=== PATIENT | female | born 1995 | race American Indian/Alaskan Native ===

== ENCOUNTER 2021-01-03 13:53 | Outpatient (CLI) | payer OTHER | END 2021-01-03 14:47 | disposition home or self-care (01) | LOC: NST 13:53 | PROVIDERS: ATTEND Obstetrics & Gynecology | DX: Z34.82 Encounter for supervision of other normal pregnancy, second trimester (principal) ==

== ENCOUNTER 2021-02-13 14:06 | Outpatient (CLI) | payer OTHER ==
[2021-02-13] MEDS ORDERED: DIALYVITE 800-1 EACH PO (14:36)
[2021-02-13] MEDS ORDERED: PRENATAL CAPLE1 EAC1 PO (14:37)
== END 2021-02-14 12:11 | disposition home or self-care (01) ==
LOC: OBS/DEL 14:06
PROVIDERS: ATTEND Obstetrics & Gynecology
DX: O36.8130 Decreased fetal movements, third trimester, not applicable or unspecified (principal); Z3A.28 28 weeks gestation of pregnancy

== ENCOUNTER 2021-02-24 09:43 | Outpatient (CLI) | payer OTHER ==
[~2021-02-24 09:43] MED LIST: DIALYVITE 800-1 EACH PO; PRENATAL CAPLE1 EAC1 PO
== END 2021-02-24 10:33 | disposition home or self-care (01) ==
LOC: NST 09:43
PROVIDERS: ATTEND Obstetrics & Gynecology
DX: Z34.83 Encounter for supervision of other normal pregnancy, third trimester (principal)

== ENCOUNTER 2021-03-14 15:29 | Outpatient (CLI) | payer OTHER | END 2021-03-14 16:57 | disposition home or self-care (01) | LOC: NST 15:29 | PROVIDERS: ATTEND Obstetrics & Gynecology Maternal & Fetal Medicine | DX: Z34.83 Encounter for supervision of other normal pregnancy, third trimester (principal) ==

== ENCOUNTER 2021-04-22 14:30 | Inpatient (IN) | payer OTHER ==
[~2021-04-22] VITALS: Ht 154.9 cm; Wt 68.0 kg
== END 2021-04-27 11:00 | disposition home or self-care (01) | DRG 807 ==
LOC: SURG-SUITE 04-25 04:23 → LDR 04-25 04:23 → SURG-SUITE 04-25 17:57 → OB/GYN 05-05 14:30
PROVIDERS: ADMIT Obstetrics & Gynecology; ATTEND Obstetrics & Gynecology
PROC: 10E0XZZ Delivery of Products of Conception, External Approach (ICD-10-PCS; principal; 2021-04-25)
PROC: 0W8NXZZ Division of Female Perineum, External Approach (ICD-10-PCS; 2021-04-25)
PROC: 4A1HXFZ Monitoring of Products of Conception, Cardiac Rhythm, External Approach (ICD-10-PCS; 2021-04-25)
DX: O80 Encounter for full-term uncomplicated delivery (principal); Z37.0 Single live birth; Z3A.38 38 weeks gestation of pregnancy; Z20.822 Contact with and (suspected) exposure to COVID-19

== ENCOUNTER 2021-04-24 09:54 | Outpatient (CLI) | payer OTHER | END 2021-04-24 10:51 | disposition home or self-care (01) | LOC: NST 09:54 | PROVIDERS: ATTEND Obstetrics & Gynecology | DX: Z34.83 Encounter for supervision of other normal pregnancy, third trimester (principal) ==

== ENCOUNTER → 2025-06-05 | Emergency (ER) | payer OTHER ==
[~2025-06-05] VITALS: Ht 154.9 cm; Wt 68.0 kg
[~2025-06-05] MED LIST changes: +0.9 % SODIUM CHLORIDE 1,000 ML IV ONE; +ACETAMINOPHEN 500 MG GEL..CAP PO ONE; +CETIRIZINE HCL 10 MG TABLET PO ONE; +CETIRIZINE HCL 5MG/5ML BLIST.PACK PO ONE; +FAMOTIDINE/PF 20 MG in 0.9 % SODIUM CHLORIDE 8 ML IV PUSH ONE; +FAMOTIDINE/PF 20 MG/2 ML VIAL ONE; +GUAIFENESIN 200 MG/10 ML BLIST.PACK PO ONE; +MUCINEX1200 MG PO; +ONDANSETRON 4 MG TAB.RAPDIS PO ONE; +ONDANSETRON HCL 4 MG in 0.9 % SODIUM CHLORIDE 50 ML IV ONE; +OSEL75CA PO; +OSELTAMIVIR PHOSPHATE 75 MG CAPSULE PO ONE; +PEPCID AC20 MG PO; +ZYRTEC10 MG PO
[2025-06-05 21:55] LABS: BASO % 0.2 % (0.1-1.2); EOS # 0.04 (0.04-0.54); EOS % 0.4 % (0.7-7.0); LYMPH # 0.38 (1.18-3.74); LYMPH % 4.0 % (19.3-53.1); MEAN PLATELET VOLUME 11.10 fl (9.4-12.4); MONO # 1.12 (0.24-0.82); MONO % 11.8 % (4.7-12.5); NEUT # 7.82 (1.56-6.13); NEUT % 82.5 % (34.0-71.1); RED CELL DISTRIBUTION WIDTH 13.2 % (11.6-14.4)
[2025-06-05 22:28] LABS: ALT/SGPT 94.0 U/L (12-78); AST/SGOT 45.0 U/L (15-37); BILIRUBIN TOTAL 0.32 mg/dL (0.3-1.2); BUN CREA RATIO 15.0 (7.0-25.0); CREATININE SERUM 0.53 mg/dL (0.55-1.02); GFR 136.38; GLOBULINA 3.6 G/DL (2.4-3.5); GLUCOSE FASTING 108.0 mg/dL (65-100); OSMOLALITY SERUM 275.0 MOSM/KG (275-295)
[2025-06-05 23:15] LABS: COVID-19 AG NEGATIVE (NEGATIVE)
== END | disposition home or self-care (01) ==
LOC: ER 16:40
PROVIDERS: General Practice
DX: Z33.1 Pregnant state, incidental (principal); Z3A.09 9 weeks gestation of pregnancy; J10.1 Influenza due to other identified influenza virus with other respiratory manifestations; R50.9 Fever, unspecified; R05.9 Cough, unspecified; R11.0 Nausea; Z20.822 Contact with and (suspected) exposure to COVID-19